=== PATIENT | male | born 1950 | race Caucasian/White ===

== ENCOUNTER 2019-09-09 07:05 | Day surgery (SDC) | payer MEDICARE, BC ==
[2019-09-09] MEDS ORDERED: PROPOFOL 10 MG/ML VIAL IV ONE (07:06)
[2019-09-09] MEDS ORDERED: LIDOCAINE 2% MDV (20MG/ML) 20ML VIAL IV ONE (07:06)
--- NOTE | 2019-09-09 15:10 | Operative Note ---
OPERATION: COLONOSCOPY. PREOPERATIVE DIAGNOSIS: Personal history of colon polyps. POSTOPERATIVE DIAGNOSIS: Normal exam. ESTIMATED BLOOD LOSS: None. SPECIMENS: None. COMPLICATIONS: None apparent. PREPARATION QUALITY: Excellent. PROCEDURE: After informed consent was obtained from the patient, he was placed in the left lateral decubitus position in the endoscopy suite, sedated and monitored by the department of anesthesia. Digital rectal examination revealed what appeared to be an enlarged prostate. No palpable rectal masses identified. A well-lubricated [id number] colonoscope was inserted into the rectum and advanced to the cecum. The cecum, cecal bulb, ileocecal valve, appendiceal orifice, ascending colon, transverse colon, descending colon, sigmoid colon, and rectum were free of inflammatory changes, mass lesions, or polyps. Forward and J-turn views of the rectum and anorectum were unremarkable other than perhaps some internal hemorrhoids. The endoscope was straightened, the rectal ampulla deflated, and the endoscope was removed. RECOMMENDATIONS: The patient should resume his medications and diet. I recommend a repeat exam in 5 years. As always, thank you for allowing me to participate in the healthcare of your patients. ROSARIO
== END 2019-09-09 09:15 | disposition home or self-care (01) ==
LOC: HOP 07:05
PROVIDERS: ATTEND Internal Medicine Gastroenterology
DX: Z09 Encounter for follow-up examination after completed treatment for conditions other than malignant neoplasm (principal); Z86.010 Personal history of colon polyps; E78.00 Pure hypercholesterolemia, unspecified